=== PATIENT | male | born 1965 | race Caucasian/White ===

== ENCOUNTER 2023-04-27 16:15 | Emergency (ER) | payer MEDICAID ==
[2023-04-27 16:38] LABS: BASOPHILS PERCENT AUTO 0.2 % (0.2-1.2); EOSINOPHILS PERCENT AUTO 0.2 % (0.0-4.0); HEMATOCRIT 41.4 % (40.0-52.0); HEMOGLOBIN 14.5 g/dL (14.0-18.0); IMMATURE GRAN ABSOLUTE AUTO 0.02 x10^3/uL (0.00-0.07); LYMPHOCYTES ABSOLUTE AUTO 1.9 x10^3/uL (1.0-4.8); LYMPHOCYTES PERCENT AUTO 14.5 % (25.0-50.0); MEAN CORPUSCULAR HEMOGLOBIN 30.9 pg (26.0-32.0); MEAN CORPUSCULAR VOLUME 88.3 fL (78.0-93.0); MONOCYTES ABSOLUTE AUTO 0.7 x10^3/uL (0.0-0.8); MONOCYTES PERCENT AUTO 5.6 % (2.0-11.0); NEUTROPHILS ABSOLUTE AUTO 10.2 x10^3/uL (1.8-7.7); NEUTROPHILS PERCENT AUTO 79.3 % (50.0-80.0); PLATELET COUNT,PLT 328 x10^3/uL (130-400); RED BLOOD CELL COUNT 4.69 x10^6/uL (4.5-6.0); WHITE BLOOD CELL COUNT,WBC 12.8 x10^3/uL (4.0-10.0)
[2023-04-27 16:53] LABS: A/G RATIO 0.95; ALANINE AMINOTRANSFERASE,ALT 30 U/L (16-63); ALBUMIN 3.9 g/dL (3.4-5.0); ALKALINE PHOSPHATASE 101 U/L (46-116); ANION GAP 19.9 mmol/L (5-15); ASPARTATE AMNIOTRANSFERASE,AST 21 U/L (15-37); BILIRUBIN TOTAL 0.7 mg/dL (0.2-1.0); BLOOD UREA NITROGEN,BUN 12 mg/dL (7-18); CALCIUM 9.4 mg/dL (8.5-10.1); CARBON DIOXIDE,CO2 21 mmol/L (21-32); CHLORIDE,CL 100 mmol/L (98-107); CREATININE 1.3 mg/dL (0.70-1.30); ESTIMATED GFR 63 mL/min (>=60); GLUCOSE RANDOM 111 mg/dL (70-99); POTASSIUM,K 3.9 mmol/L (3.5-5.1); SODIUM,NA 137 mmol/L (136-145)
[2023-04-27 17:03] LABS: STREP A BY PCR NOT DETECTED (NOT DETECT)
[2023-04-27 17:15] LABS: CORONAVIRUS COVID-19 NAA NEGATIVE (NEGATIVE)
[2023-04-27 17:16] LABS: INFLUENZA A NAA NEGATIVE (NEGATIVE); INFLUENZA B NAA NEGATIVE (NEGATIVE); RESPIRATORY SYNCYTIAL VIR NAA NEGATIVE (NEGATIVE)
[2023-04-27 17:20] LABS: APPEARANCE,URINE CLEAR (CLEAR); BILIRUBIN,URINE SMALL (NEGATIVE); COLOR,URINE YELLOW (YELLOW); GLUCOSE,URINE NEGATIVE (NEGATIVE); KETONES,URINE 80 mg/dL (NEGATIVE); LEUKOCYTE ESTERASE,URINE NEGATIVE (NEGATIVE); NITRITE,URINE NEGATIVE (NEGATIVE); OCCULT BLOOD,URINE NEGATIVE (NEGATIVE); PROTEIN,URINE 30 mg/dL (NEGATIVE)
[2023-04-27 17:27] LABS: RBC,URINE 0-5 /HPF (NOT SEEN)
[2023-04-27 17:28] LABS: BACTERIA,URINE RARE /HPF (NOT SEEN); MUCUS,URINE FEW /LPF (NOT SEEN); SQUAMOUS EPITHELIAL CELLS,UR NOT SEEN /HPF (NOT SEEN); WBC,URINE NOT SEEN /HPF (NOT SEEN)
[2023-04-27] MEDS: predniSONE 20 MG Tab PO ONE ×2 (17:45→17:50)
[2023-04-27] MEDS: Azithromycin 250 MG Tab PO ONE (17:46)
[2023-04-27] MEDS: Albuterol HFA 18 Gm Inhaler INH PRN (17:46)
[2023-04-27] MEDS: Albuterol/Ipratropium 3.0-0.5 MG/3 ML Neb Soln NEB ONE (18:18)
[2023-04-28] MEDS ORDERED: predniSONE 20 MG Tab PO ONE (17:29)
== END 2023-04-27 17:52 | disposition home or self-care (01) ==
LOC: VM.ED 16:15 → MERGE 16:15 → VM.ED 17:52
DX: J20.9 Acute bronchitis, unspecified (principal); Z87.891 Personal history of nicotine dependence
CPT/HCPCS: 0241U; 71046; 80053; 81001; 85025; 85379; 86140; 87651-QW; 94640; 99283; 99285; A9270-GY; J7512; J7620-GY